=== PATIENT | female | born 1995 | race Caucasian/White ===

== ENCOUNTER 2017-07-30 05:29 | Emergency (ER) | payer OTHER ==
[~2017-07-30] VITALS: Ht 157.5 cm; Wt 48.0 kg
[~2017-07-30 05:29] MED LIST: HYDR-3533 PO; PREN29CH PO
[2017-07-30 05:32] VITALS: BP 140/71; PULSE 97; RESP 16; TEMP 98.6; O2SAT 99
--- NOTE | 2017-07-30 06:39 | PD ---
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 She describes some blood clots in the toilet. She denies any abdominal cramping. Her symptoms are mild, constant, with no associated fevers or chills. She said 2 sexual partners in the past 6 months. She says she is about 8 weeks per her dates. She had a prior losses which she was told might be in the setting of her negative Rh status. [facility] Past Medical History Medical History: Denies Significant Hx Diminished Hearing: No Tetanus Vaccination: Unknown Influenza Vaccination: No ?: LMP: 06/07/2017 : 2 Miscarriage: 1 Past Surgical History Surgical History: No Previous Surgery Social History Alcohol Use: No Tobacco Use: No Substance Use: No Allergies-Medications (Allergen,Severity, Reaction): Coded Allergies: No Known Allergies (Verified , 04/15/16) Reported Meds & Prescriptions Reported Meds & Active Scripts Active Lortab 5 mg/325 mg (Hydrocodone/Acetaminophen 5 mg/325 mg) 1 Tab 1-2 Tab PO Q6H PRN Reported [place] ( Multivitamins) 1 Chw Chw 1 Chw PO DAILY Review of Systems Except as stated in HPI: all other systems reviewed are Neg Physical Exam Narrative GENERAL:Well appearing, no acute distress SKIN: Focused skin assessment warm and dry. HEAD: Atraumatic. Normocephalic. EYES: Pupils equal and round. No injection or drainage. ENT: Moist mucous membranes NECK: Trachea midline. CARDIOVASCULAR: Regular rate and rhythm. No murmur appreciated. RESPIRATORY: Clear to auscultation. Breath sounds equal bilaterally. GASTROINTESTINAL: Abdomen soft, non-tender, nondistended. PARTY HOST/HOSTESS: thick pinkish vaginal discharge in the vault with a closed cervix MUSCULOSKELETAL: No obvious deformities. NEUROLOGICAL: Awake and alert. No obvious cranial nerve deficits. Moving all extremities PSYCHIATRIC: Appropriate mood and affect; insight and judgment normal. Data Data Last Documented VS Vital Signs Date Time Temp Pulse Resp B/P (MAP) Pulse Ox O2 Delivery O2 Flow Rate FiO2 07/30/17 05:32 98.6 97 16 140/71 (94) 99 Room Air Orders Orders Urinalysis - C+S If Indicated (07/30/17 06:11) Wet Prep Profile (07/30/17 06:33) Gc And Chlamydia Pcr (07/30/17 06:33) Rhogam Only (07/30/17 06:34) Urine Culture (07/30/17 06:18) Labs Laboratory Tests Test 07/30/17 06:18 07/30/17 06:35 Urine Color LIGHT-YELLOW Urine Turbidity CLEAR Urine pH 5.5 Urine Specific [place] 1.008 Urine Protein NEG mg/dL Urine Glucose (UA) NEG mg/dL Urine Ketones NEG mg/dL Urine Occult Blood SMALL Urine Nitrite NEG Urine Bilirubin NEG Urine Urobilinogen LESS THAN 2.0 MG/DL Urine Leukocyte Esterase MOD Urine RBC 1 /hpf Urine WBC 10 /hpf Urine WBC Clumps RARE Urine Squamous Epithelial Cells 1 /hpf Urine Bacteria OCC /hpf Urine Mucus FEW /lpf Microscopic Urinalysis Comment CULTURE INDICATED MDM Medical Decision Making Medical Screen Exam Complete: Yes Emergency Medical Condition: Yes Interpretation(s) afebrile, mild tachycardia, normotensive Differential Diagnosis Threatened miscarriage, incomplete miscarriage, complete miscarriage, urinary tract infection, ectopic Narrative Course This is a 22-year-old female who presents to the emergency department with vaginal bleeding in the setting of early . I performed a bedside transabdominal ultrasound demonstrating an early intrauterine with a heart rate of 170 and some movement. She is Rh-. Patient will be given RhoGAM in the setting of bleeding. She can follow-up with [facility] as an outpatient. Diagnosis Primary Impression: Threatened miscarriage Additional Impression: Urinary tract infection Qualified Codes: N30.00 - Acute cystitis without hematuria Patient Instructions: General Instructions Additional Instructions: You have been diagnosed with a threatened miscarriage. Many women who have vaginal bleeding in early go on to have normal pregnancies. However some women that have vaginal bleeding will have a miscarriage and it is important to followup with your panel wirer. If you develop severe abdominal pain, fever, persistent vomiting or inability to eat, heavy vaginal bleeding using more than one pad an hour, lightheadedness , dizziness, chest pain or shortness of breath return to the emergency department immediately. Followup with your panel wirer as soon as possible. Take Tylenol as needed for pain. Med/Other Pt SpecificInfo: Prescription(s) given Scripts Cephalexin (Keflex) 500 Mg Cap 500 MG PO Q12H for Infection for 7 Days, #14 CAP 0 Refills Prov: Ernestine Peters MD 07/30/17 Disposition: 01 DISCHARGE HOME Condition: Stable Ernestine Peters MD Jul 30, 2017 06:39
[2017-07-30 06:44] LABS: BACTERIA, URINE OCC /hpf; BLOOD, URINE SMALL (NEG); COMMENT (UR) CULTURE INDICATED; CULTURE IF INDICATED CULTURE INDICATED; GLUCOSE,URINE NEG (NEG); KETONE, URINE NEG (NEG); MUCUS URINE FEW /lpf (OCC); NITRITE,URINE NEG (NEG); PH, URINE 5.5 (5.0-8.5); SQUAMOUS EPITHELIAL CELL URINE 1 /hpf (0-5); URINE COLOR LIGHT-YELLOW (YELLW/STRAW)
[2017-07-30] MEDS ORDERED: CEPH-460 PO (07:02)
[2017-07-30] MEDS ORDERED: METR-1 PO (07:16)
[2017-07-30 12:37] LABS: CHLAMYDIA PCR NOT DETECTED (NOT DETECT); NEISSERIA PCR NOT DETECTED (NOT DETECT)
[2017-08-08] MEDS ORDERED: DOXY10TA PO (16:35)
[2017-08-08] MEDS ORDERED: PREN28TA2 (21:26)
== END 2017-07-30 07:51 | disposition home or self-care (01) ==
LOC: NEPC 05:29
DX: O20.0 Threatened abortion (principal); O23.11 Infections of bladder in pregnancy, first trimester; B96.20 Unspecified Escherichia coli [E. coli] as the cause of diseases classified elsewhere; N30.00 Acute cystitis without hematuria; Z3A.08 8 weeks gestation of pregnancy
CPT/HCPCS: 81001; 87077; 87086; 87186; 87210; 87491; 87591; 90384; 96372; 99284; J2790

== ENCOUNTER → 2017-08-17 | Outpatient (CLI) | payer OTHER ==
[~2017-08-17] MED LIST changes: +CEPH-460 PO; +DOXY10TA PO; -HYDR-3533 PO; +METR-1 PO; +PREN28TA2; -PREN29CH PO
== END ==
LOC: HPND 13:51
PROVIDERS: ATTEND Family Medicine
DX: O36.80X0 Pregnancy with inconclusive fetal viability, not applicable or unspecified (principal)
CPT/HCPCS: 76801

== ENCOUNTER 2017-09-02 04:45 | Emergency (ER) | payer OTHER ==
[~2017-09-02] VITALS: Ht 157.5 cm; Wt 65.0 kg
[2017-09-02 04:46] VITALS: BP 138/66; PULSE 99; RESP 16; TEMP 99.2; O2SAT 99
[2017-09-02 05:40] LABS: BILIRUBIN, URINE NEG (NEG); BLOOD, URINE NEG (NEG); GLUCOSE,URINE TRACE mg/dL (NEG); KETONE, URINE TRACE mg/dL (NEG); MUCUS URINE FEW /lpf (OCC); NITRITE,URINE NEG (NEG); PH, URINE 5.5 (5.0-8.5); SQUAMOUS EPITHELIAL CELL URINE <1 /hpf (0-5); URINE COLOR LIGHT-YELLOW (YELLW/STRAW); URINE LEUKOCYTE ESTERASE NEG (NEG)
--- NOTE | 2017-09-02 06:22 | PD ---
HPI Chief Complaint: Related Problem Time Seen by Provider: 05:24 Travel History International Travel<30 days: No Contact w/Intl Traveler<30days: No Traveled to known affect area: No History of Present Illness HPI Patient is a 22-year-old female who is 14 weeks by date she was having some pressure in her lower back as well as pressure uterine contraction like pain . Started today , SHe is worried she had similiar pain on a prior and that led to a miscarriage. I do a POC bedside US .. IUP + activity and + heart 154 PFSH Past Medical History Diminished Hearing: No Immunizations Current: Yes Tetanus Vaccination: > 5 Years Influenza Vaccination: No ?: : 2 Miscarriage: 1 Social History Alcohol Use: No Tobacco Use: No Substance Use: No Allergies-Medications (Allergen,Severity, Reaction): Coded Allergies: No Known Allergies (Verified Adverse Reaction, Unknown, 09/02/17) Reported Meds & Prescriptions Reported Meds & Active Scripts Active Reported Tablet (Pnv No.95/Ferrous Fum/Folic AC) Unknown Strength Tablet Unknown Dose Review of Systems Except as stated in HPI: all other systems reviewed are Neg Physical Exam Narrative GENERAL: pt is in no distress non toxic appearance SKIN: Warm and dry. HEAD: Atraumatic. Normocephalic. EYES: Pupils equal and round. No scleral icterus. No injection or drainage. ENT: No nasal bleeding or discharge. Mucous membranes pink and moist. NECK: Trachea midline. No JVD. CARDIOVASCULAR: Regular rate and rhythm. RESPIRATORY: No accessory muscle use. Clear to auscultation. Breath sounds equal bilaterally. GASTROINTESTINAL: Abdomen soft, non-tender, nondistended. Hepatic and splenic margins not palpable. MUSCULOSKELETAL: Extremities without clubbing, cyanosis, or edema. No obvious deformities. NEUROLOGICAL: Awake and alert. No obvious cranial nerve deficits. Motor grossly within normal limits. Five out of 5 muscle strength in the arms and legs. Normal speech. PSYCHIATRIC: Appropriate mood and affect; insight and judgment normal. POC US + FHR @ 154 and + activity Data Data Last Documented VS Vital Signs Date Time Temp Pulse Resp B/P (MAP) Pulse Ox O2 Delivery O2 Flow Rate FiO2 09/02/17 06:50 09/02/17 04:46 99.2 99 16 99 Room Air Orders Orders Urinalysis - C+S If Indicated (09/02/17 05:02) Ed Urine Pregnancytest Poc (09/02/17 05:03) Labs Laboratory Tests Test 09/02/17 05:00 Urine Color LIGHT-YELLOW Urine Turbidity CLEAR Urine pH 5.5 Urine Specific [place] 1.006 Urine Protein NEG mg/dL Urine Glucose (UA) TRACE mg/dL Urine Ketones TRACE mg/dL Urine Occult Blood NEG Urine Nitrite NEG Urine Bilirubin NEG Urine Urobilinogen LESS THAN 2.0 MG/DL Urine Leukocyte Esterase NEG Urine WBC 2 /hpf Urine Squamous Epithelial Cells <1 /hpf Urine Mucus FEW /lpf Microscopic Urinalysis Comment CULT NOT INDICATED MDM Medical Decision Making Medical Screen Exam Complete: Yes Emergency Medical Condition: Yes Differential Diagnosis threaten AB vs Round ligament pain vs colitis vs UTI Narrative Course bedside sono reassuring to pt and Urine neg for infection d/c close outpt follow up with [facility] Diagnosis Primary Impression: Round ligament pain Additional Impression: Abdominal pain during Qualified Codes: O26.891 - Other specified related conditions, first trimester; R10.9 - Unspecified abdominal pain Patient Instructions: Abdominal Pain (ED), General Instructions Disposition: 01 DISCHARGE HOME Condition: Jorge Dove MD Sep 02, 2017 06:22
== END 2017-09-02 06:52 | disposition home or self-care (01) ==
LOC: NEPE 04:45
DX: O26.892 Other specified pregnancy related conditions, second trimester (principal); R10.2 Pelvic and perineal pain; Z3A.14 14 weeks gestation of pregnancy
CPT/HCPCS: 81001; 84703; 99284

== ENCOUNTER → 2017-10-12 | Outpatient (CLI) | payer OTHER ==
[~2017-10-12] MED LIST changes: -CEPH-460 PO; -DOXY10TA PO; -METR-1 PO
== END ==
LOC: HPND 14:01
PROVIDERS: ATTEND Family Medicine
DX: Z36.3 Encounter for antenatal screening for malformations (principal)
CPT/HCPCS: 76805